=== PATIENT | female | born 1945 | race Two or more races ===

== ENCOUNTER → 2017-12-16 | Outpatient (CLI) | payer OTHER ==
[~2017-12-16] MED LIST: LIPITOR20 MG; NORVASC2.5 MG
== END | disposition home or self-care (01) ==
LOC: RAD 10:46
DX: M54.2 Cervicalgia (principal); M54.6 Pain in thoracic spine; M54.5 Low back pain; J40 Bronchitis, not specified as acute or chronic; J44.9 Chronic obstructive pulmonary disease, unspecified

== ENCOUNTER → 2018-01-01 | Outpatient (CLI) | payer OTHER | END | disposition home or self-care (01) | LOC: NUCLEAR 12-31 10:00 | DX: M85.80 Other specified disorders of bone density and structure, unspecified site (principal); M81.0 Age-related osteoporosis without current pathological fracture ==

== ENCOUNTER 2019-04-23 11:06 | Outpatient (CLI) | payer OTHER | END 2019-04-23 11:26 | disposition home or self-care (01) | LOC: MRI 11:06 | DX: M54.5 Low back pain (principal) | CPT/HCPCS: 72148 ==

== ENCOUNTER 2019-04-29 09:38 | Outpatient (CLI) | payer OTHER | END 2019-04-29 10:00 | disposition home or self-care (01) | LOC: NUCLEAR 09:38 | DX: I20.1 Angina pectoris with documented spasm (principal) ==

== ENCOUNTER → 2020-04-07 | Outpatient (CLI) | payer OTHER | END | disposition home or self-care (01) | LOC: TOM 08:48 | PROVIDERS: ATTEND Internal Medicine Cardiovascular Disease | DX: K74.69 Other cirrhosis of liver (principal); R10.84 Generalized abdominal pain; K59.09 Other constipation ==

== ENCOUNTER 2020-06-23 11:28 | Outpatient (CLI) | payer OTHER | END 2020-06-23 11:36 | disposition home or self-care (01) | LOC: TOM 11:28 | PROVIDERS: ATTEND Psychiatry & Neurology Clinical Neurophysiology | DX: G93.89 Other specified disorders of brain (principal) ==

== ENCOUNTER 2021-02-27 09:59 | Outpatient (CLI) | payer OTHER | END 2021-02-27 10:01 | disposition home or self-care (01) | LOC: NUCLEAR 09:59 | PROVIDERS: ATTEND Physical Medicine & Rehabilitation | DX: I73.9 Peripheral vascular disease, unspecified (principal) ==

== ENCOUNTER 2021-03-02 10:49 | Outpatient (CLI) | payer OTHER | END 2021-03-02 10:55 | disposition home or self-care (01) | LOC: NUCLEAR 10:49 | PROVIDERS: ATTEND Physical Medicine & Rehabilitation | DX: I87.2 Venous insufficiency (chronic) (peripheral) (principal); M81.0 Age-related osteoporosis without current pathological fracture ==

== ENCOUNTER 2021-03-02 11:53 | Outpatient (CLI) | payer OTHER | END 2021-03-02 11:59 | disposition home or self-care (01) | LOC: RAD 11:53 | PROVIDERS: ATTEND Physical Medicine & Rehabilitation | DX: M54.5 Low back pain (principal) ==

== ENCOUNTER 2021-04-09 08:00 | Outpatient (CLI) | payer OTHER | END 2021-04-09 08:30 | disposition home or self-care (01) | LOC: PPH VACUNA 08:00 | PROVIDERS: ATTEND Emergency Medicine Pediatric Emergency Medicine | DX: Z23 Encounter for immunization (principal) ==

== ENCOUNTER 2021-08-30 12:44 | Outpatient (CLI) | payer OTHER | END 2021-08-30 12:47 | disposition home or self-care (01) | LOC: SONOGRAMA 12:44 | PROVIDERS: ATTEND Internal Medicine Hepatology | DX: K76.9 Liver disease, unspecified (principal) ==

== ENCOUNTER 2021-11-23 13:00 | Outpatient (CLI) | payer OTHER | END 2021-11-23 13:30 | disposition home or self-care (01) | LOC: PPH VACUNA 13:00 | PROVIDERS: ATTEND Emergency Medicine Pediatric Emergency Medicine | DX: Z23 Encounter for immunization (principal) ==

== ENCOUNTER 2022-01-09 11:40 | Outpatient (CLI) | payer OTHER | END 2022-01-09 11:48 | disposition home or self-care (01) | LOC: MRI 11:40 | PROVIDERS: ATTEND Psychiatry & Neurology Clinical Neurophysiology | DX: G95.20 Unspecified cord compression (principal) | CPT/HCPCS: 72141 ==

== ENCOUNTER 2022-04-03 12:01 | Outpatient (CLI) | payer OTHER | END 2022-04-03 12:08 | disposition home or self-care (01) | LOC: RAD 12:01 | PROVIDERS: ATTEND Physical Medicine & Rehabilitation | DX: M54.6 Pain in thoracic spine (principal); M54.06 Panniculitis affecting regions of neck and back, lumbar region ==

== ENCOUNTER 2022-08-14 11:37 | Outpatient (CLI) | payer OTHER | END 2022-08-14 11:41 | disposition home or self-care (01) | LOC: RAD 11:37 | PROVIDERS: ATTEND Physical Medicine & Rehabilitation | DX: M17.0 Bilateral primary osteoarthritis of knee (principal) ==

== ENCOUNTER 2023-01-03 09:05 | Outpatient (CLI) | payer OTHER | END 2023-01-03 09:09 | disposition home or self-care (01) | LOC: SONOGRAMA 09:05 | DX: K76.0 Fatty (change of) liver, not elsewhere classified (principal) ==

== ENCOUNTER 2023-07-09 09:37 | Outpatient (CLI) | payer OTHER | END 2023-07-09 09:38 | disposition home or self-care (01) | LOC: SONOGRAMA 09:37 | PROVIDERS: ATTEND Internal Medicine Hepatology | DX: N18.9 Chronic kidney disease, unspecified (principal) ==

== ENCOUNTER 2024-04-08 09:34 | Outpatient (CLI) | payer OTHER | END 2024-04-08 09:44 | disposition home or self-care (01) | LOC: MRI 09:34 | PROVIDERS: ATTEND Psychiatry & Neurology Clinical Neurophysiology | DX: M54.12 Radiculopathy, cervical region (principal) | CPT/HCPCS: 72148 ==

== ENCOUNTER 2024-07-20 10:07 | Outpatient (CLI) | payer OTHER | END 2024-07-20 10:12 | disposition home or self-care (01) | LOC: TOM 10:07 | PROVIDERS: ATTEND Internal Medicine Hepatology | DX: R10.32 Left lower quadrant pain (principal) ==

== ENCOUNTER 2025-05-04 09:27 | Outpatient (CLI) | payer OTHER | END 2025-05-04 09:35 | disposition home or self-care (01) | LOC: SONOGRAMA 09:27 | PROVIDERS: ATTEND Internal Medicine Hepatology | DX: K76.9 Liver disease, unspecified (principal) ==